=== PATIENT | male | born 1970 | race Caucasian/White ===

== ENCOUNTER 2019-01-01 10:02 | Day surgery (SDC) | payer MEDICAID, SELFPAY ==
--- NOTE | 2019-01-01 06:15 | W.PM.ENDDOP ---
Date of service: 01/01/19 Time of Service: 11:12 Endoscopy Report DATE OF PROCEDURE: 01/01/19 PRE-OP DIAGNOSIS: Nausea, Epigastric pain and changes in bowel habits POST-OP DIAGNOSIS: other (severe gastritis, duodenitis, esophagitis, colorectal polyps) PROCEDURE: 1. EGD with bx 2. Colonoscopy with polypectomy by cold forceps SURGEON: Eli Rivas ANESTHESIA: MAC (keri Padilla CRNA/ ASA 2) ESTIMATED BLOOD LOSS: 5 PATHOLOGY: other (duodenal bx, gastric bx, Ge junction bx, ascending Polyp, sigmoid polyp and rectal polyp) COMPLICATIONS: None DISPOSITION: same day INDICATIONS: Mr. Zamora is a pleasant 48 year old male seen in the office complaining of nausea, dry heaves, epigastric pain and changes in bowel habits. Risks, benefits and complications have been reviewed. Complications include but are not limited to bleeding, pain, perforation, missed small lesion/polyp, sore throat, aspiration and adverse reaction to the medications. Questions were entertained and answered to their satisfaction and they wished to proceed. No guarantees were given or implied. PREP: Miralax/Dulcolax PROCEDURE START TIME: 11:12 PROCEDURE END TIME: 12:14 COLONOSCOPY RETRACTION TIME: 19 minutes FINDINGS: Upper- severe duodenitis and gastritis, gastric ulcer, esophagitis. Colon- multiple polyps PROCEDURE DESCRIPTION: After informed consent was obtained the patient was take to the procedure room and placed in a supine position. Monitors were applied and a time out was done. The patients name, date of , procedure type, allergies to medications and metal in their body was reviewed. A bite block was placed and the patient was sedated. Once sedated and comfortable the gastroscope was advanced through the oropharynx which was grossly normal into the esophagus. The proximal and mid-esophagus were normal. In the distal esophagus there was inflammation noted. The scope was advanced into the stomach and through the pylorus into the 3rd portion of the duodenum. The duodenum was noted to have inflammation. Biopsies were done of the duodenum. The scope was retracted back into the stomach and biopsies were done to rule out H. pylori. There was one ulcer noted in the antrum and this bx. The scope was retroflexed. The cardia and fundus were noted to be normal. There was no hiatal hernia noted. The scope was retracted back into the esophagus and biopsies were done of the GE junction to rule out Carbajal's. The Z line was irregular. The GE junction was at 38 cm. While the patient was still sedated they were placed in a left decubitous position. A rectal exam was done. External exam was normal. Internal exam revealed a normal sphincter tone and no palpable masses. The prostate was not felt. The scope was then introduced and retro-flexed. no internal hemorrhoids were identified. The scope was then advanced to the cecum with difficulty due to the patients body habitus. The TI and appendiceal orifice were identified. The prep was adequate. The scope was then slowly retracted over 19 minutes back into the rectum. 1 polyp was removed in the ascending colon with forceps, 3 polyps were removed in the sigmoid colon and 2 polyps were removed in the rectum. The scope was removed and the patient was woken up and taken back to Same day surgery in stable condition. The patient tolerated the procedure well and there were no immediate complications. Follow up: 3-5 years for his next colonoscopy. Follow up in 2 -3 weeks in the office. Omeprazole will be increased to BID and Carafate will be added.
--- NOTE | 2019-01-01 06:19 | PDOC.DSDIS_ITS ---
Discharge Plan Disposition Patient Disposition: HOME Condition: Good Discharge Details Reason For Visit: Nausea, epigastric pain, bowel habit changes Attending Provider: Eli Rivas Primary Care Provider: Annmarie Del Angel Home Meds and New Rx's Prescriptions: New omeprazole 40 mg capsule,delayed release(DR/EC) 40 mg PO BID Qty: 60 RF: 0 sucralfate [Carafate] 1 gram tablet 1 gm PO QID Qty: 56 RF: 0 Continued hydrochlorothiazide 25 mg tablet 25 mg PO DAILY RF: 0 Maximum Daily Multivitamin 18-0.4 mg tablet 1 tab PO DAILY RF: 0 metformin 500 mg tablet 1,000 mg PO DAILY RF: 0 sildenafil [Viagra] 100 mg tablet 100 mg PO .2-3 TIMES A WEEK PRNRF: 0 fluticasone [Allergy Relief (fluticasone)] 50 mcg/actuation spray,suspension 2 spray VONDA DAILY PRNRF: 0 loratadine 10 mg tablet 10 mg PO DAILY RF: 0 Farxiga 5 mg tablet 5 mg PO DAILY RF: 0 metformin 500 mg tablet 1,500 mg PO .PM RF: 0 Discontinued omeprazole 40 mg capsule,delayed release(DR/EC) 40 mg PO DAILY RF: 0 polyethylene glycol 3350 17 gram powder in packet 255 g PO DAILY Qty: 15 RF: 0 bisacodyl [Dulcolax (bisacodyl)] 5 mg tablet,delayed release (DR/EC) 5 mg PO ONCE Qty: 4 RF: 0 Discharge Instructions Instructions: Colonoscopy (DC), Upper Endoscopy (DC), Colorectal Polyps (DC), Duodenitis (DC), Diet for Stomach Ulcers and Gastritis (GEN), Gastritis (DC), Esophagitis (DC) Additional Instructions: Findings: Inflammation of the small bowel, stomach and esophagus Polyps in the colon Follow up:3-5 years for your next colonoscopy 2-3 weeks in the office Please call if you develop: fevers >101.5 Nausea or Vomiting Abdominal pain that is not transient DAY SURGERY UNIT POST COLONOSCOPY INSTRUCTIONS 1. Because there will be medication in your system for the next 24 hours, you may feel a little sleepy. Your coordination will be affected. Therefore: a. Do not drive or operate dangerous equipment for 24 hours. b. Do not drink alcohol beverages for 24 hours (not even beer). c. Plan to go home and rest for the day. 2. Generally there are no restrictions on your activity after a day or so has gone by, but you may feel a bit fatigued for a few days. 3 After you arrive home you may have a light meal and return to a normal diet as you can tolerate it without feeling sick to your stomach. 4. After surgery, you may feel pain or discomfort. This should be only tra nsient, but if it persists please contact your doctor. 5. If there are any questions regarding the findings of your procedure, please feel free to contact your doctor. 6. If you are unable to contact your doctor with a problem, contact the hospital at [phone]. 7. Continue all your regular medications unless directed otherwise. I understand the above instructions and have no questions. Signature of Patient or Responsible Adult Escort Date/Time Name of Responsible Adult Escort Signature of Nurse Date/Time Stand Alone Forms: DSU Post EGD Instructions, Dario Michele (DSU) Referrals: Eli Rivas MD [ [facility] STAFF PHYSICIAN] - (2 to 3 weeks) Activity:: Activity as Tolerated Diet:: low acid diet Discharge Orders Discharge Orders: Discharge Order (Routine); Ordered 01/01/19 Ordered By: Eli Rivas DS: Diagnosis Discharge Diagnosis (1) S/P colonoscopy: Status: Acute (2) H/O esophagogastroduodenoscopy: Status: Chronic (3) Gastritis and duodenitis: Status: Acute (4) Colorectal polyps: Status: Acute (5) Esophagitis: Status: Acute
[2019-01-01 10:16] VITALS: BP 137/89; PULSE 70; RESP 16; TEMP 35.4; O2SAT 100
[2019-01-01] MEDS: Lactated Ringers 1,000 ML 80 ML IV (10:59)
[2019-01-01] MEDS: Lidocaine 2% Viscous 15 ML CUP (11:05)
--- NOTE | 2019-01-01 11:14 | BOWEL_PTH ---
PATIENT: Michael Zamora LOC: [facility] U#:[id number] AGE/SX: 48/M ROOM: RE01/01/[address]: Eli Rivas MD : 1970 BED: DIS: 01/01/2019 SPEC #: [id number] RECD: 01/01/19 17:49 STATUS: REECE SANTOS #: [id number] AGUILAR: 01/01/19 11:[address]: Eli Rivas DEPT: Surgical Specimen RECD BY: Laurel Montano ENTERED: 01/01/19 17:53 SP TYPE: Bowel OTHR DR: Annmarie Del Angel Tissues: 1 - BIOPSY BOWEL 2 - STOMACH BIOPSY 3 - STOMACH BIOPSY 4 - ESOPHAGUS BIOPSY 5 - BIOPSY BOWEL 6 - BIOPSY BOWEL 7 - BIOPSY BOWEL Procedures: GROSS AND MICRO LEVEL 4 Comments: [id number]
[2019-01-01 13:21] VITALS: BP 111/73; PULSE 55; RESP 18; TEMP 35.5; O2SAT 99
== END 2019-01-01 13:30 | disposition home or self-care (01) ==
LOC: SUR 10:03
PROVIDERS: PCP Internal Medicine; Visit Provider Surgery
PROC: (CPT 45380; principal; 2019-01-01 11:15)
DX: R19.4 Change in bowel habit (principal); D12.2 Benign neoplasm of ascending colon; D12.5 Benign neoplasm of sigmoid colon; K62.1 Rectal polyp; K63.5 Polyp of colon; R11.0 Nausea; R63.4 Abnormal weight loss; K29.80 Duodenitis without bleeding; K31.89 Other diseases of stomach and duodenum; K29.00 Acute gastritis without bleeding; K21.0 Gastro-esophageal reflux disease with esophagitis; E11.9 Type 2 diabetes mellitus without complications; Z79.84 Long term (current) use of oral hypoglycemic drugs; G47.33 Obstructive sleep apnea (adult) (pediatric)
CPT/HCPCS: 45380; 43239; 88305

== ENCOUNTER 2019-11-19 10:52 | Day surgery (SDC) | payer MEDICAID, SELFPAY ==
--- NOTE | 2019-11-19 07:14 | W.PM.ENDDOP ---
Date of service: 11/19/19 Time of Service: 11:55 Endoscopy Report DATE OF PROCEDURE: 11/19/19 PRE-OP DIAGNOSIS: Hx of gastritis and esophagitis POST-OP DIAGNOSIS: other (Duodenitis, gastritis with ulcer, esophagitis) PROCEDURE: EGD with bx SURGEON: Eli Rivas ANESTHESIA: other (General/ ASA 2/Keo Awan, TERE ) ESTIMATED BLOOD LOSS: 3 PATHOLOGY: other (Duodenal bx, Antrum bx, Gastric ulcer bx, esophageal bx) COMPLICATIONS: None DISPOSITION: same day INDICATIONS: 49 y/o male with history of DM type 2, HTN, and esophagitis presents to discuss having a repeat EGD. His last EGD was on 01/12/19 at which time showed severe gastritis, duodenitis, esophagitis with recommended follow up in 3 months.. Since that time he has been taking daily Zantac and Omeprazole with some improvement in his symptoms. He reports at times he continues to have upset stomach and nausea and this only improves after smoking a small amount of marijuana. He denies any changes in his bowel habits to include diarrhea, constipation, melena or hematochezia. He denies use of any other recreational drugs. PROCEDURE START TIME: 11:55 FINDINGS: Duodenitis without ulcer Gastritis with ulcer Esophagitis PROCEDURE DESCRIPTION: After informed consent was obtained the patient was take to the procedure room and placed in a supine position. Monitors were applied and a time out was done. The patients name, date of , procedure type, allergies to medications and metal in their body was reviewed. A bite block was placed and the patient was sedated. Once sedated and comfortable the gastroscope was advanced through the oropharynx which was grossly normal into the esophagus. The proximal and mid-esophagus were normal. In the distal esophagus there was inflammation noted. Grossly it looked like Barretts. The scope was advanced into the stomach and through the pylorus into the 3rd portion of the duodenum. The 3rd and 2nd portions of the duodenum were noted to be normal. There was inflammation noted in the 1st portion. Biopsies were done. The scope was retracted back into the stomach and moderate inflammation was noted as well as one ulcer. Biopsies were done of the natrum to rule out H. pylori. The ulcer was also biopsied. The scope was retro-flexed. The cardia and fundus were noted to have mild inflammation. There was no hiatal hernia noted. The scope was retracted back into the esophagus and biopsies were done of the GE junction to rule out Carbajal's. The Z line was irregular. The GE junction was at 40 cm. There was one area that was denuded at 42 cm and this was also biopsied. The scope was removed and the patient was woken up and taken back to [facility] in stable condition. Follow up: 3-4 weeks
--- NOTE | 2019-11-19 07:17 | W.PM.DSUDISC ---
Discharge Plan Disposition Patient Disposition: HOME Condition: Good Discharge Details Reason For Visit: Hx of Gastritis and esophagitis Attending Provider: Eli Rivas Primary Care Provider: Annmarie Del Angel Home Meds and New Rx's Prescriptions: New omeprazole 40 mg capsule,delayed release(DR/EC) 40 mg PO BID Qty: 60 RF: 2 sucralfate [Carafate] 1 gram tablet 1 gm PO QID Qty: 56 RF: 0 Continued hydrochlorothiazide 25 mg tablet 25 mg PO DAILY RF: 0 Maximum Daily Multivitamin 18-0.4 mg tablet 1 tab PO DAILY RF: 0 metformin 500 mg tablet 1,000 mg PO DAILY RF: 0 sildenafil [Viagra] 100 mg tablet 75 mg PO DAILY RF: 0 fluticasone propionate [Allergy Relief (fluticasone)] 50 mcg/actuation spray,suspension 2 spray VONDA DAILY PRNRF: 0 loratadine 10 mg tablet 10 mg PO DAILY RF: 0 Farxiga 5 mg tablet 5 mg PO DAILY RF: 0 metformin 500 mg tablet 1,500 mg PO .PM RF: 0 naproxen sodium [Aleve] 220 mg Capsule RF: 0 Discontinued famotidine [Heartburn Relief (famotidine)] 20 mg tablet 20 mg PO QHS Qty: 30 RF: 0 omeprazole 40 mg capsule,delayed release(DR/EC) 40 mg PO DAILY Qty: 30 RF: 3 Discharge Instructions Instructions: Diet for Stomach Ulcers and Gastritis (GEN), Gastritis (DC), Peptic Ulcer (DC) Additional Instructions: Findings: Inflammation of the small bowel, stomach and esophagus Small ulcer in the stomach Follow up: 3-4 weeks New Medications: Increase Omeprazole to 40 mg 2 x a day Carafate 1 gm before meals and at bedtime Other: No alcohol at all please and follow the Gastric ulcer diet Please call if you develop: fevers >101.5 Nausea or Vomiting Abdominal pain that is not transient DAY SURGERY UNIT POST ENDOSCOPY INSTRUCTIONS 1. Because there will be medication in your system for the next 24 hours, you may feel a little sleepy. Your coordination will be affected. Therefore: a. Do not drive or operate dangerous equipment for 24 hours. b. Do not drink alcohol beverages for 24 hours (not even beer). c. Plan to go home and rest for the day. 2. Generally there are no restrictions on your activity after a day or so has gone by, but you may feel a bit fatigued for a few days. 3 After you arrive home you may have a light meal and return to a normal diet as you can tolerate it without feeling sick to your stomach. 4. After surgery, you may feel pain or discomfort. This should be only transient, but if it persists please contact your doctor. 5. If there are any questions regarding the findings of your procedure, please feel free to contact your doctor. 6. If you are unable to contact your doctor with a problem, contact the hospital at [phone]. 7. Continue all your regular medications unless directed otherwise. I understand the above instructions and have no questions. Signature of Patient or Responsible Adult Escort Date/Time Name of Responsible Adult Escort Signature of Nurse Date/Time Activity:: Activity as Tolerated Diet:: As Tolerated Discharge Orders Discharge Orders: Discharge Order (Routine); Ordered 11/19/19 Ordered By: Eli Rivas DS: Diagnosis Discharge Diagnosis (1) Esophagitis: Status: Acute (2) Gastritis and duodenitis: Status: Acute (3) Gastric ulcer: Status: Acute
[2019-11-19 11:18] VITALS: BP 133/93; PULSE 70; RESP 20; TEMP 36.5; O2SAT 99
[2019-11-19] MEDS: Lactated Ringers 1,000 ML 80 ML IV (11:30)
--- NOTE | 2019-11-19 11:56 | STOM_PTH ---
PATIENT: Michael Zamora LOC: [facility] U#:[id number] AGE/SX: 49/M ROOM: RE11/19/[address]: Eli Rivas MD : 1970 BED: DIS: 11/19/2019 SPEC #: [id number] RECD: 11/19/19 12:56 STATUS: REECE REElsie #: [id number] AGUILAR: 11/19/19 11:[address]: Eli Rivas DEPT: Surgical Specimen RECD BY: Laurel Montano ENTERED: 11/19/19 12:57 SP TYPE: STOMACH OTHR DR: Annmarie Del Angel Tissues: 1 - BIOPSY BOWEL 2 - STOMACH BIOPSY 3 - STOMACH BIOPSY 4 - ESOPHAGUS BIOPSY 5 - ESOPHAGUS BIOPSY Procedures: GROSS AND MICRO LEVEL 4 Comments: [id number]
[2019-11-19 12:45] VITALS: BP 118/74; PULSE 63; RESP 20; TEMP 36; O2SAT 97
== END 2019-11-19 13:24 | disposition home or self-care (01) ==
LOC: SUR 10:52
PROVIDERS: PCP Internal Medicine; Visit Provider Surgery
PROC: 0DJ68ZZ Inspection of Stomach, Via Natural or Artificial Opening Endoscopic (ICD-10-PCS; CPT 43235; principal; 2019-11-19 13:30)
DX: Z09 Encounter for follow-up examination after completed treatment for conditions other than malignant neoplasm (principal); Z87.19 Personal history of other diseases of the digestive system; K22.10 Ulcer of esophagus without bleeding; K21.0 Gastro-esophageal reflux disease with esophagitis; K25.6 Chronic or unspecified gastric ulcer with both hemorrhage and perforation; K29.80 Duodenitis without bleeding; K31.89 Other diseases of stomach and duodenum; I10 Essential (primary) hypertension; E11.9 Type 2 diabetes mellitus without complications; Z79.84 Long term (current) use of oral hypoglycemic drugs; G47.33 Obstructive sleep apnea (adult) (pediatric)
CPT/HCPCS: 43239; 88305

== ENCOUNTER 2025-05-08 01:59 | Outpatient (CLI) | payer MEDICAID, SELFPAY ==
--- NOTE | 2025-05-08 12:45 | DI.MRI_ITS ---
Exam(s) MR LOWER JOINT RT WO EXAM: MR LOWER JOINT RT WO CLINICAL HISTORY: INTERNAL DERANGEMENT RT KNEE, M23.91. TECHNIQUE: Multiplanar multisequence MRI was performed. COMPARISON: No exams were available for comparison FINDINGS: BONES: There is no fracture or contusion pattern. JOINTS: There is near complete loss of the articular cartilage overlying the medial femoral condyle and the medial tibial plateau. Subchondral edema is seen particularly in the medial tibial plateau. There is also thinning of the articular cartilage overlying the lateral patellar facet with underlying cystic changes. No effusion is present. TENDONS: Extensor mechanism: Unremarkable. Medial retinaculum: Unremarkable. Lateral retinaculum: Unremarkable. Popliteus: Unremarkable. MUSCLES: Unremarkable. MENISCI: There is a large tear of the posterior horn of the medial meniscus. There is increased size in the appearance of the body of the meniscus which may reflect displaced meniscal tissue. The lateral meniscus is unremarkable. SOFT TISSUES: There is a small popliteal cyst. LIGAMENTS: Anterior Cruciate: There is increased signal seen on all sequences in the anterior cruciate ligament. There do appear to be intact fibers. This may represent mucoid degeneration. Partial tear should also be considered. Posterior Cruciate: Unremarkable. Medial Collateral:Unremarkable. Lateral Collateral: Unremarkable. OTHER: IMPRESSION: 1. Large tear of the posterior horn of the medial meniscus. 2. Increased signal seen in the ACL on all sequences. The findings may represent mucoid degeneration. Partial tear should also be considered. 3. Extensive chondromalacia. DATA REPOSITORY:
== END 2025-05-08 02:19 ==
LOC: DI 02:00
PROVIDERS: PCP Internal Medicine; Visit Provider Physician Assistant
DX: M23.221 Derangement of posterior horn of medial meniscus due to old tear or injury, right knee (principal)
CPT/HCPCS: 73721